=== PATIENT | male | born 1965 | race Two or more races ===

== ENCOUNTER 2021-04-18 01:01 | Emergency (ER) | payer MEDICAID ==
[~2021-04-18] VITALS: Ht 167.6 cm; Wt 79.4 kg
[2021-04-18 03:10] VITALS: BP 145/88
[2021-04-18] MEDS ORDERED: KETOROLAC TROMETH 60MG/2ML VIAL IM ONE (04:00)
== END 2021-04-18 04:27 | disposition home or self-care (01) ==
LOC: ER 01:01
DX: L03.031 Cellulitis of right toe (principal); I10 Essential (primary) hypertension
CPT/HCPCS: 96372; 99283; J1885